=== PATIENT | male | born 1965 | race Two or more races ===

== ENCOUNTER 2020-07-03 16:13 | Emergency (ER) | payer BC ==
[~2020-07-03] VITALS: Ht 185.4 cm; Wt 109.2 kg
[~2020-07-03 16:13] MED LIST: HUMERA IM; METH2.5T IM
[2020-07-03 17:55] VITALS: BP 98/63
--- NOTE | 2020-07-03 19:02 | NUR ---
NA X 1
--- NOTE | 2020-07-03 19:17 | NUR ---
NA X 2
--- NOTE | 2020-07-03 19:44 | NUR ---
NA X 3
== END 2020-07-03 19:45 ==
LOC: ED 17:00
DX: M79.605 Pain in left leg (principal); Z53.21 Procedure and treatment not carried out due to patient leaving prior to being seen by health care provider

== ENCOUNTER 2020-10-13 17:24 | Outpatient (CLI) | payer BC | END 2020-10-13 23:59 | disposition home or self-care (01) | LOC: RAD 17:24 | PROVIDERS: ATTEND Family Medicine | DX: R10.30 Lower abdominal pain, unspecified (principal) | CPT/HCPCS: 76700 ==